=== PATIENT | female | born 1975 | race African-American/Black ===

== ENCOUNTER 2025-08-13 15:09 | Inpatient (IN) | payer MEDICAID ==
[2025-08-13] VITALS (17 sets, daily range): BP systolic 106–133; BP diastolic 79–95; PULSE 99–112; RESP 16–36; TEMP 36.8072–37; O2SAT 97–100
[~2025-08-13] VITALS: Ht 167.6 cm; Wt 99.8 kg
[~2025-08-13 15:09] MED LIST: ETOMIDATE 2MG/ML 10ML VIAL IV ONE; ROCURONIUM BROMIDE 10MG/ML VIAL 5ML IV ONE
[2025-08-13] MEDS: METHYLPREDNISOLONE SOD SUCC 125MG/2ML (ACT-O-VIAL) ONE (15:29)
[2025-08-13] MEDS ORDERED: FENTANYL 2500MCG/250ML PMX 250 ML IV SCH (15:30)
[2025-08-13] MEDS: PROPOFOL 10MG/ML 100ML 100 ML IV SCH (15:31)
[2025-08-13] MEDS: SODIUM CHLORIDE 0.9% 1,000 ML IV ONE (15:31)
[2025-08-13 15:36] LABS: BASOPHILS % 0.4 % (0.0-2.0); EOSINOPHILS % 0.9 % (0.0-5.0); HEMATOCRIT. 46.1 % (36.0-48.0); HEMOGLOBIN. 14.9 g/dL (12.0-16.0); LYMPHOCYTES % 35.1 % (20.0-50.0); MEAN PLATELET VOLUME 9.6 fl (7.4-10.4); MONOCYTES % 5.3 % (2.0-8.0); NEUTROPHILS % 58.3 % (40.0-76.0); PLATELET 246 x1000/uL (130-400); RED BLOOD CELL COUNT 5.14 mill/uL (4.2-5.4); RED CELL DISTRIBUTION WIDTH 14.3 % (11.6-14.6)
[2025-08-13] MEDS: MAGNESIUM 2 G PREMIX 50 ML IV ONE (15:43)
[2025-08-13] MEDS: ONDANSETRON HCL 4MG/2ML INJ IV ONE (15:44)
[2025-08-13] MEDS: FENTANYL 2500MCG/250ML PMX 250 ML IV PRN (15:44)
[2025-08-13 15:49] LABS: CREATININE 0.9 mg/dL (0.6-1.0)
[2025-08-13 15:50] LABS: TROPONIN I HIGH SENSITIVITY < 4 ng/L (3.0-34); UREA NITROGEN BLOOD 8 mg/dL (9-23)
[2025-08-13 15:51] LABS: ASPARTATE AMINOTRANSFERASE 17 IU/L (<34)
[2025-08-13 15:52] LABS: BILIRUBIN DIRECT < 0.1 mg/dL (<=3.0); BILIRUBIN TOTAL 0.3 mg/dL (0.1-1.0); PROTEIN TOTAL 7.3 g/dL (6.0-8.3)
[2025-08-13 16:00] LABS: HCG SCREEN NEGATIVE
[2025-08-13] MEDS ORDERED: METHYLPREDNISOLONE SOD SUCC 125MG/2ML (ACT-O-VIAL) IV SCH (16:00)
[2025-08-13] MEDS: AZITHROMYCIN 500MG/250ML 250 ML IV ONE (16:17)
[2025-08-13] MEDS ORDERED: IPRATROPIUM/ALBUTEROL 0.5-3(2.5)MG/3ML NEB HHN PRN ×2 (16:30→17:00)
[2025-08-13] MEDS: SODIUM CHLORIDE 0.9% (SEPSIS BOLUS) IV ONE (16:32)
[2025-08-13 16:45] LABS: BG BASE EXCESS -7.7 mmol/L (-2.0-3.0); BG CARBOXYHEMOGLOBIN 0.7 % (0.5-1.5); BG DEOXYHEMOGLOBIN 0.2 % (0.0-5.0); BG FRACTION INSPIRED OXYGEN 100; BG HCO3 ACT 21.8 mmol/L (21.0-28.0); BG METHEMOGLOBIN 0.3 % (0.5-1.5); BG OXYGEN SATURATION 99.8 % (94.0-98.0); BG OXYHEMOGLOBIN 98.8 % (94.0-98.0); BG PCO2 61.0 mmHg (32.0-45.0); BG PH 7.171 (7.350-7.450); BG PO2 344.5 mmHg (83.0-108.0); BG SAMPLE SITE RIGHT RADIAL; BG TIDAL VOLUME(mL) 450.0 mL; BG TOTAL HEMOGLOBIN 15.2 g/dL (12.0-16.0); BG VENT MODE VENT - AC; BG VENT RATE 16.0 set
[2025-08-13 17:00] LABS: INR 1.0
[2025-08-13] MEDS ORDERED: ACETAMINOPHEN 325MG TABLET PO PRN ×2 (17:00)
[2025-08-13] MEDS: VANCOMYCIN 1G PREMIX 200 ML IV SCH (17:00)
[2025-08-13] MEDS: CLONIDINE 0.1MG TABLET NG NR (17:00)
[2025-08-13] MEDS ORDERED: DOCUSATE SODIUM 100MG CAPSULE PO PRN (17:00)
[2025-08-13] MEDS: PIPERACILLIN/TAZO 3.375G/50ML 50 ML IV SCH (17:19)
[2025-08-13 17:26] LABS: CREATININE 0.7 mg/dL (0.6-1.0); UREA NITROGEN BLOOD 7 mg/dL (9-23)
[2025-08-13] MEDS ORDERED: DEXTROSE 50% WATER 50ML SYRINGE IV PRN (17:30)
[2025-08-13] MEDS ORDERED: FENTANYL CITRATE/PF 2,500 MCG in SODIUM CHLORIDE 0.9% 200 ML IV PRN (17:30)
[2025-08-13] MEDS ORDERED: METHYLPREDNISOLONE SOD SUCC 40MG/ML (ACT-O-VIAL) IV SCH (17:30)
[2025-08-13] MEDS: KCL 20MEQ/100ML PREMIX 100 ML IV NR (17:39)
[2025-08-13] MEDS: DILTIAZEM HCL 5MG/ML 5ML VIAL IV NR (17:45)
[2025-08-13] MEDS: METHYLPREDNISOLONE SOD SUCC 125MG/2ML (ACT-O-VIAL) IV SCH (17:51)
[2025-08-13] MEDS: BLOOD SUGAR DIAGNOSTIC STRIP TEST SCH (18:00)
[2025-08-13] MEDS: INSULIN LISPRO 100 UNITS/ML SUBCUT SCH (18:00)
[2025-08-13 18:07] LABS: TRIGLYCERIDE 651.0 mg/dL (0-150)
[2025-08-13 18:08] LABS: LDL CHOLESTEROL 143.0 mg/dL (5-100)
[2025-08-13 18:12] LABS: T4 FREE 1.22 ng/dL (0.89-1.76)
[2025-08-13] MEDS: IPRATROPIUM/ALBUTEROL 0.5-3(2.5)MG/3ML NEB HHN SCH (19:35)
[2025-08-13 20:39] LABS: INFLUENZA TYPE A Presumptive Negative (Pres. Neg.)
[2025-08-13 20:40] LABS: INFLUENZA TYPE B Presumptive Negative (Pres. Neg.)
[2025-08-13] MEDS: ENOXAPARIN 30MG/0.3ML SYR SUBCUT SCH (21:48)
[2025-08-13] MEDS: FAMOTIDINE 20MG/2ML VIAL IV SCH (21:48)
[2025-08-13] MEDS: PROPOFOL 10MG/ML 100ML 100 ML IV PRN (21:49)
[2025-08-13 22:01] LABS: BG BASE EXCESS -8.9 mmol/L (-2.0-3.0); BG CARBOXYHEMOGLOBIN 0.8 % (0.5-1.5); BG DEOXYHEMOGLOBIN 1.7 % (0.0-5.0); BG FRACTION INSPIRED OXYGEN 40; BG HCO3 ACT 17.5 mmol/L (21.0-28.0); BG METHEMOGLOBIN 0.3 % (0.5-1.5); BG OXYGEN SATURATION 98.3 % (94.0-98.0); BG OXYHEMOGLOBIN 97.2 % (94.0-98.0); BG PCO2 39.6 mmHg (32.0-45.0); BG PEEP (cmH2O) 5.0 cmH2O; BG PH 7.263 (7.350-7.450); BG PO2 116.6 mmHg (83.0-108.0); BG SAMPLE SITE RIGHT RADIAL; BG TIDAL VOLUME(mL) 500.0 mL; BG TOTAL HEMOGLOBIN 14.5 g/dL (12.0-16.0); BG VENT MODE VENT - AC; BG VENT RATE 18.0 set
[2025-08-14] VITALS (97 sets, daily range): BP systolic 99–148; BP diastolic 56–96; PULSE 91–134; RESP 5–32; TEMP 36.8–37.9; O2SAT 94–100
[2025-08-14] MEDS: PIPERACILLIN/TAZO 3.375G/50ML 50 ML IV SCH (00:26)
[2025-08-14] MEDS: VANCOMYCIN 1G PREMIX 200 ML IV SCH ×2 (00:29→09:20)
[2025-08-14 05:46] LABS: HEMATOCRIT. 44.6 % (36.0-48.0); HEMOGLOBIN. 14.0 g/dL (12.0-16.0); MEAN PLATELET VOLUME 9.7 fl (7.4-10.4); PLATELET 247 x1000/uL (130-400); RED BLOOD CELL COUNT 4.95 mill/uL (4.2-5.4); RED CELL DISTRIBUTION WIDTH 14.1 % (11.6-14.6)
[2025-08-14 06:00] LABS: CREATININE 1.1 mg/dL (0.6-1.0); UREA NITROGEN BLOOD 11 mg/dL (9-23)
[2025-08-14 06:02] LABS: PHOSPHORUS 2.6 mg/dL (2.5-4.9)
[2025-08-14 09:14] LABS: TRIGLYCERIDE 379.0 mg/dL (0-150)
[2025-08-14 09:28] LABS: CLARITY URINE CLEAR (CLEAR); COLOR URINE YELLOW (YELLOW); GLUCOSE URINE 1+ (NEGATIVE); KETONES URINE NEGATIVE (NEGATIVE); LEUKOCYTE ESTERASE URINE NEGATIVE (NEGATIVE); NITRITE URINE NEGATIVE (NEGATIVE); OCCULT BLOOD URINE NEGATIVE (NEGATIVE); PH URINE 5.5 (4.5-8.0); PROTEIN URINE 2+ (NEGATIVE); SPECIFIC GRAVITY URINE 1.040 (1.005-1.030); UROBILINOGEN URINE 0.2 E.U./dL (0.2-1.0)
[2025-08-14 09:30] LABS: BG BASE EXCESS -12.2 mmol/L (-2.0-3.0); BG CARBOXYHEMOGLOBIN 0.7 % (0.5-1.5); BG DEOXYHEMOGLOBIN 1.7 % (0.0-5.0); BG FRACTION INSPIRED OXYGEN 40; BG HCO3 ACT 15.0 mmol/L (21.0-28.0); BG METHEMOGLOBIN 0.3 % (0.5-1.5); BG OXYGEN SATURATION 98.3 % (94.0-98.0); BG OXYHEMOGLOBIN 97.3 % (94.0-98.0); BG PCO2 38.6 mmHg (32.0-45.0); BG PEEP (cmH2O) 5.0 cmH2O; BG PH 7.207 (7.350-7.450); BG PO2 114.8 mmHg (83.0-108.0); BG SAMPLE SITE RIGHT RADIAL; BG TIDAL VOLUME(mL) 500.0 mL; BG TOTAL HEMOGLOBIN 15.4 g/dL (12.0-16.0); BG VENT MODE VENT - AC; BG VENT RATE 18.0 set
[2025-08-14 09:51] LABS: *AMPHETAMINES SCREEN URINE NEGATIVE (NEGATIVE); *BARBITURATES SCREEN URINE NEGATIVE (NEGATIVE); *BENZODIAZEPINES SCREEN URINE NEGATIVE (NEGATIVE); *COCAINE SCREEN URINE NEGATIVE (NEGATIVE); METHADONE URINE SCREEN NEGATIVE (NEGATIVE)
[2025-08-14 09:52] LABS: CANNABINOID URINE SCREEN NEGATIVE (NEGATIVE); ECSTASY MDMA SCREEN URINE NEGATIVE (NEGATIVE); OPIATES URINE SCREEN NEGATIVE (NEGATIVE); PHENCYCLIDINE URINE SCREEN NEGATIVE (NEGATIVE)
[2025-08-14 09:56] LABS: COARSE GRANULAR CASTS URINE 0-5 /lpf; FINE GRANULAR CASTS URINE 0-5 /lpf; HYALINE CASTS URINE 0-5 /lpf; WHITE BLOOD CELL CASTS URINE 0-5 /lpf
[2025-08-14 09:57] LABS: RBC URINE NONE SEEN /hpf (0-2); SQUAMOUS EPITHELIAL CELL URINE RARE /lpf (RARE/1+)
[2025-08-14 09:58] LABS: BACTERIA URINE TRACE; MUCUS URINE 1+ /lpf (< = 2+)
[2025-08-14] MEDS: DEXTROSE 50% WATER 50ML SYRINGE IV SCH (10:21)
[2025-08-14] MEDS: INSULIN REGULAR (HUMULIN R) 1000UNITS/10ML VIAL IV SCH (10:22)
[2025-08-14] MEDS: CALCIUM CHLORIDE 1GM/10ML SYR IV SCH (10:22)
[2025-08-14] MEDS: SODIUM BICARBONATE 8.4% 50MEQ/50ML SYR IV SCH (10:22)
[2025-08-14] MEDS: SODIUM CHLORIDE 0.9% 1,000 ML IV SCH (10:55)
[2025-08-14] MEDS: SODIUM CHLORIDE 0.9% 500 ML IV ONE (10:55)
[2025-08-14] MEDS: METHYLPREDNISOLONE SOD SUCC 125MG/2ML (ACT-O-VIAL) IV NR (11:58)
[2025-08-14] MEDS: ALBUTEROL (0.083%) 2.5MG/3ML NEB HHN SCH ×2 (12:02→14:00)
[2025-08-14] MEDS: ALBUTEROL (0.083%) 2.5MG/3ML NEB HHN ONE (12:03)
[2025-08-14] MEDS: IPRATROPIUM BROMIDE (0.02%) 0.5MG/2.5ML NEB HHN SCH (12:04)
[2025-08-14 12:10] LABS: LYMPHOCYTES % MANUAL 2.0 % (20.0-60.0); MONOCYTES % MANUAL 3.0 % (2.0-8.0); NEUTROPHILS % MANUAL 95.0 % (45.0-75.0); PLATELET ESTIMATE NORMAL
[2025-08-14] MEDS: DIPHENHYDRAMINE 50MG/ML VIAL IV NR (12:25)
[2025-08-14] MEDS: MAGNESIUM 2 G PREMIX 50 ML IV NR (12:25)
[2025-08-14] MEDS: MIDAZOLAM 100MG/100ML PMX 100 ML IV PRN (12:32)
[2025-08-14] MEDS: FENTANYL 2500MCG/250ML PMX 250 ML IV PRN (12:33)
[2025-08-14 15:27] LABS: CREATININE 1.2 mg/dL (0.6-1.0); UREA NITROGEN BLOOD 17.0 mg/dL (9-23)
[2025-08-14] MEDS: MONTELUKAST SODIUM 10MG TABLET PO SCH (17:36)
[2025-08-14] MEDS ORDERED: VECURONIUM BROMIDE 50 MG in DEXTROSE 5% WATER 50 ML IV PRN (18:15)
[2025-08-14] MEDS: PROPOFOL 10MG/ML 100ML 100 ML IV PRN (19:11)
[2025-08-14 21:09] LABS: BG BASE EXCESS -11.3 mmol/L (-2.0-3.0); BG CARBOXYHEMOGLOBIN 0.1 % (0.5-1.5); BG DEOXYHEMOGLOBIN 17.7 % (0.0-5.0); BG FRACTION INSPIRED OXYGEN 40; BG HCO3 ACT 22.1 mmol/L (21.0-28.0); BG METHEMOGLOBIN 0.2 % (0.5-1.5); BG OXYGEN SATURATION 82.2 % (94.0-98.0); BG OXYHEMOGLOBIN 82.0 % (94.0-98.0); BG PCO2 93.2 mmHg (32.0-45.0); BG PEEP (cmH2O) 8.0 cmH2O; BG PH 6.993 (7.350-7.450); BG PO2 58.6 mmHg (83.0-108.0); BG SAMPLE SITE RIGHT RADIAL; BG TOTAL HEMOGLOBIN 14.2 g/dL (12.0-16.0); BG VENT MODE VENT - P/C; BG VENT RATE 14.0 set
[2025-08-14] MEDS: ONDANSETRON HCL 4MG/2ML INJ IV PRN (21:09)
[2025-08-14] MEDS: GUAIFENESIN 200MG/10ML SUGAR FREE UDC PO PRN (21:09)
[2025-08-14] MEDS: DIPHENHYDRAMINE 50MG/ML VIAL IV PRN (21:10)
[2025-08-14] MEDS: SODIUM BICARBONATE 8.4% 50MEQ/50ML SYR IV NR (21:37)
[2025-08-14] MEDS: SODIUM BICARBONATE 100 MEQ in SODIUM CHLORIDE 0.45% 900 ML IV SCH (23:19)
[2025-08-15] VITALS (107 sets, daily range): BP systolic 99–136; BP diastolic 51–87; PULSE 48–117; RESP 13–21; TEMP 36.9–37.5; O2SAT 77–100
[2025-08-15 00:07] LABS: BG BASE EXCESS -5.1 mmol/L (-2.0-3.0); BG CARBOXYHEMOGLOBIN 0.2 % (0.5-1.5); BG DEOXYHEMOGLOBIN 0.9 % (0.0-5.0); BG FRACTION INSPIRED OXYGEN 70; BG HCO3 ACT 24.8 mmol/L (21.0-28.0); BG METHEMOGLOBIN 0.2 % (0.5-1.5); BG OXYGEN SATURATION 99.1 % (94.0-98.0); BG OXYHEMOGLOBIN 98.7 % (94.0-98.0); BG PCO2 70.9 mmHg (32.0-45.0); BG PEEP (cmH2O) 8.0 cmH2O; BG PH 7.162 (7.350-7.450); BG PO2 143.1 mmHg (83.0-108.0); BG SAMPLE SITE RIGHT RADIAL; BG TOTAL HEMOGLOBIN 12.9 g/dL (12.0-16.0); BG VENT MODE VENT - P/C; BG VENT RATE 14.0 set
[2025-08-15] MEDS: SODIUM BICARBONATE 8.4% 50MEQ/50ML SYR IV NR (00:49)
[2025-08-15] MEDS: SODIUM ZIRCONIUM CYCLOSILICATE 10GM/PACKET PO NR (00:49)
[2025-08-15] MEDS: DEXTROSE 50% WATER 50ML SYRINGE IV NR (00:49)
[2025-08-15] MEDS: INSULIN REGULAR (HUMULIN R) 1000UNITS/10ML VIAL IV NR (00:50)
[2025-08-15] MEDS: CALCIUM GLUCONATE 1GM PREMIX 50 ML IV NR (03:37)
[2025-08-15 06:53] LABS: CREATININE 1.0 mg/dL (0.6-1.0); TRIGLYCERIDE 314 mg/dL (0-150)
[2025-08-15 06:54] LABS: HEMATOCRIT. 35.0 % (36.0-48.0); HEMOGLOBIN. 11.2 g/dL (12.0-16.0); MEAN PLATELET VOLUME 10.5 fl (7.4-10.4); PLATELET 192 x1000/uL (130-400); RED BLOOD CELL COUNT 3.91 mill/uL (4.2-5.4); RED CELL DISTRIBUTION WIDTH 14.1 % (11.6-14.6); UREA NITROGEN BLOOD 18 mg/dL (9-23)
[2025-08-15 06:55] LABS: ASPARTATE AMINOTRANSFERASE 9 IU/L (<34); BILIRUBIN DIRECT < 0.1 mg/dL (<=3.0)
[2025-08-15 06:56] LABS: BILIRUBIN TOTAL 0.3 mg/dL (0.1-1.0); PHOSPHORUS 4.1 mg/dL (2.5-4.9); PROTEIN TOTAL 5.7 g/dL (6.0-8.3)
[2025-08-15] MEDS: IOHEXOL-350 100 ML BOTTLE ONE (08:43)
[2025-08-15 09:24] LABS: BG BASE EXCESS 1.4 mmol/L (-2.0-3.0); BG CARBOXYHEMOGLOBIN 0.7 % (0.5-1.5); BG DEOXYHEMOGLOBIN 2.0 % (0.0-5.0); BG FRACTION INSPIRED OXYGEN 40; BG HCO3 ACT 28.9 mmol/L (21.0-28.0); BG METHEMOGLOBIN 0.2 % (0.5-1.5); BG OXYGEN SATURATION 98.0 % (94.0-98.0); BG OXYHEMOGLOBIN 97.1 % (94.0-98.0); BG PCO2 59.8 mmHg (32.0-45.0); BG PEEP (cmH2O) 8.0 cmH2O; BG PH 7.302 (7.350-7.450); BG PO2 102.4 mmHg (83.0-108.0); BG SAMPLE SITE LEFT RADIAL; BG TIDAL VOLUME(mL) 450.0 mL; BG TOTAL HEMOGLOBIN 12.0 g/dL (12.0-16.0); BG VENT MODE VENT - AC; BG VENT RATE 14.0 set
[2025-08-15] MEDS: VANCOMYCIN 1.5GM/250ML 250 ML IV SCH (10:04)
[2025-08-15] MEDS: LIDOCAINE HCL 1% 10 MG/ML 10ML VIAL ONE (12:18)
[2025-08-15] MEDS: SODIUM CHLORIDE 0.9% 1,000 ML IV SCH (15:33)
[2025-08-15 17:46] LABS: POTASSIUM URINE RANDOM 41.6 mEq/L; SODIUM URINE RANDOM 53.0 mEq/L
[2025-08-15 17:54] LABS: CREATININE URINE RANDOM 53.2 mg/dL
[2025-08-15 18:43] LABS: CREATININE 0.7 mg/dL (0.6-1.0)
[2025-08-15 18:44] LABS: UREA NITROGEN BLOOD 13 mg/dL (9-23)
[2025-08-15 18:46] LABS: ASPARTATE AMINOTRANSFERASE 8 IU/L (<34); BILIRUBIN TOTAL 0.4 mg/dL (0.1-1.0); PROTEIN TOTAL 5.5 g/dL (6.0-8.3)
[2025-08-15] MEDS: PROPOFOL 10MG/ML 100ML 100 ML IV PRN (19:09)
[2025-08-16] VITALS (97 sets, daily range): BP systolic 124–181; BP diastolic 78–126; PULSE 60–149; RESP 13–28; TEMP 36.9–37.2; O2SAT 92–100
[2025-08-16 07:06] LABS: LYMPHOCYTES % MANUAL 4.0 % (20.0-60.0); MONOCYTES % MANUAL 4.0 % (2.0-8.0); NEUTROPHILS % MANUAL 92.0 % (45.0-75.0); PLATELET ESTIMATE NORMAL
[2025-08-16 07:44] LABS: HEMATOCRIT. 35.4 % (36.0-48.0); HEMOGLOBIN. 11.5 g/dL (12.0-16.0); MEAN PLATELET VOLUME 10.6 fl (7.4-10.4); PLATELET 191 x1000/uL (130-400); RED BLOOD CELL COUNT 3.98 mill/uL (4.2-5.4); RED CELL DISTRIBUTION WIDTH 14.2 % (11.6-14.6)
[2025-08-16 08:19] LABS: TRIGLYCERIDE 380 mg/dL (0-150)
[2025-08-16 08:21] LABS: CREATININE 0.8 mg/dL (0.6-1.0)
[2025-08-16 08:22] LABS: UREA NITROGEN BLOOD 24 mg/dL (9-23)
[2025-08-16 08:23] LABS: ASPARTATE AMINOTRANSFERASE 12 IU/L (<34)
[2025-08-16 08:24] LABS: BILIRUBIN DIRECT < 0.1 mg/dL (<=3.0); BILIRUBIN TOTAL 0.2 mg/dL (0.1-1.0); PHOSPHORUS 3.7 mg/dL (2.5-4.9); PROTEIN TOTAL 5.5 g/dL (6.0-8.3)
[2025-08-16] MEDS ORDERED: SODIUM CHLORIDE 0.45% 500 ML IV NR (10:00)
[2025-08-16 10:30] LABS: BG BASE EXCESS 2.8 mmol/L (-2.0-3.0); BG CARBOXYHEMOGLOBIN 0.5 % (0.5-1.5); BG DEOXYHEMOGLOBIN 1.1 % (0.0-5.0); BG FRACTION INSPIRED OXYGEN 35; BG HCO3 ACT 28.6 mmol/L (21.0-28.0); BG METHEMOGLOBIN 0.3 % (0.5-1.5); BG OXYGEN SATURATION 98.9 % (94.0-98.0); BG OXYHEMOGLOBIN 98.1 % (94.0-98.0); BG PCO2 48.7 mmHg (32.0-45.0); BG PEEP (cmH2O) 8.0 cmH2O; BG PH 7.386 (7.350-7.450); BG PO2 124.1 mmHg (83.0-108.0); BG SAMPLE SITE RIGHT RADIAL; BG TIDAL VOLUME(mL) 450.0 mL; BG TOTAL HEMOGLOBIN 12.3 g/dL (12.0-16.0); BG VENT MODE VENT - AC; BG VENT RATE 14.0 set
[2025-08-16 17:38] LABS: BAND% 1.0 % (1.0-6.0); LYMPHOCYTES % MANUAL 3.0 % (20.0-60.0); MONOCYTES % MANUAL 2.0 % (2.0-8.0); NEUTROPHILS % MANUAL 94.0 % (45.0-75.0); PLATELET ESTIMATE NORMAL
[2025-08-16] MEDS: PROPOFOL 10MG/ML 100ML 100 ML IV PRN (20:40)
[2025-08-17] VITALS (89 sets, daily range): BP systolic 86–200; BP diastolic 40–124; PULSE 78–159; RESP 8–36; TEMP 36.7–38.4; O2SAT 91–100
[2025-08-17] MEDS: CLONIDINE 0.1MG TABLET PO PRN (04:06)
[2025-08-17 05:31] LABS: HEMATOCRIT. 33.2 % (36.0-48.0); HEMOGLOBIN. 10.8 g/dL (12.0-16.0); MEAN PLATELET VOLUME 10.2 fl (7.4-10.4); PLATELET 178 x1000/uL (130-400); RED BLOOD CELL COUNT 3.77 mill/uL (4.2-5.4); RED CELL DISTRIBUTION WIDTH 14.2 % (11.6-14.6)
[2025-08-17 05:47] LABS: CREATININE 0.9 mg/dL (0.6-1.0); TRIGLYCERIDE 627 mg/dL (0-150)
[2025-08-17 05:48] LABS: UREA NITROGEN BLOOD 29 mg/dL (9-23)
[2025-08-17] MEDS: FUROSEMIDE 40MG/4ML VIAL IVP SCH (09:15)
[2025-08-17 10:37] LABS: BG BASE EXCESS 2.5 mmol/L (-2.0-3.0); BG CARBOXYHEMOGLOBIN 0.5 % (0.5-1.5); BG DEOXYHEMOGLOBIN 4.3 % (0.0-5.0); BG FRACTION INSPIRED OXYGEN 35; BG HCO3 ACT 28.5 mmol/L (21.0-28.0); BG METHEMOGLOBIN 0.3 % (0.5-1.5); BG OXYGEN SATURATION 95.7 % (94.0-98.0); BG OXYHEMOGLOBIN 94.9 % (94.0-98.0); BG PCO2 50.0 mmHg (32.0-45.0); BG PEEP (cmH2O) 8.0 cmH2O; BG PH 7.374 (7.350-7.450); BG PO2 79.0 mmHg (83.0-108.0); BG SAMPLE SITE RIGHT RADIAL; BG TIDAL VOLUME(mL) 450.0 mL; BG TOTAL HEMOGLOBIN 12.4 g/dL (12.0-16.0); BG VENT MODE VENT - AC; BG VENT RATE 14.0 set
[2025-08-17 11:48] LABS: BAND% 2.0 % (1.0-6.0); LYMPHOCYTES % MANUAL 5.0 % (20.0-60.0); MONOCYTES % MANUAL 4.0 % (2.0-8.0); NEUTROPHILS % MANUAL 89.0 % (45.0-75.0)
[2025-08-17 11:49] LABS: PLATELET ESTIMATE NORMAL
[2025-08-17 14:58] LABS: BG BASE EXCESS 10.4 mmol/L (-2.0-3.0); BG CARBOXYHEMOGLOBIN 0.4 % (0.5-1.5); BG DEOXYHEMOGLOBIN 2.9 % (0.0-5.0); BG FRACTION INSPIRED OXYGEN 35; BG HCO3 ACT 35.0 mmol/L (21.0-28.0); BG METHEMOGLOBIN 0.3 % (0.5-1.5); BG OXYGEN SATURATION 97.1 % (94.0-98.0); BG OXYHEMOGLOBIN 96.4 % (94.0-98.0); BG PCO2 46.1 mmHg (32.0-45.0); BG PEEP (cmH2O) 5.0 cmH2O; BG PH 7.498 (7.350-7.450); BG PO2 83.4 mmHg (83.0-108.0); BG SAMPLE SITE RIGHT RADIAL; BG TOTAL HEMOGLOBIN 13.1 g/dL (12.0-16.0); BG VENT MODE VENT - CPAP
[2025-08-17] MEDS: ACETAMINOPHEN 650MG/20.3ML UDC PO PRN (15:47)
[2025-08-17] MEDS: METOPROLOL TARTRATE 5MG/5ML VIAL IV SCH ×2 (17:15→18:55)
[2025-08-17] MEDS: HYDRALAZINE 20MG/ML VIAL IV PRN (22:50)
[2025-08-18] VITALS (10 sets, daily range): BP systolic 136–162; BP diastolic 80–97; PULSE 73–91; RESP 17–22; TEMP 36.4–36.9; O2SAT 95–98
[2025-08-18] MEDS: AMLODIPINE 5MG TABLET PO SCH ×2 (00:57→09:46)
[2025-08-18 07:07] LABS: HEMATOCRIT. 35.3 % (36.0-48.0); HEMOGLOBIN. 11.4 g/dL (12.0-16.0); MEAN PLATELET VOLUME 10.3 fl (7.4-10.4); PLATELET 184 x1000/uL (130-400); RED BLOOD CELL COUNT 4.01 mill/uL (4.2-5.4); RED CELL DISTRIBUTION WIDTH 14.0 % (11.6-14.6)
[2025-08-18 07:40] LABS: CREATININE 0.7 mg/dL (0.6-1.0); UREA NITROGEN BLOOD 26 mg/dL (9-23)
[2025-08-18] MEDS: LORAZEPAM 0.5MG TABLET PO PRN (13:09)
[2025-08-18 19:47] LABS: LYMPHOCYTES % MANUAL 11.0 % (20.0-60.0); MONOCYTES % MANUAL 9.0 % (2.0-8.0); NEUTROPHILS % MANUAL 80.0 % (45.0-75.0); PLATELET ESTIMATE NORMAL
[2025-08-18] MEDS: PREDNISONE 20MG TABLET PO SCH (21:33)
[2025-08-18] MEDS: IPRATROPIUM/ALBUTEROL 0.5-3(2.5)MG/3ML NEB HHN SCH (22:18)
[2025-08-19] VITALS (9 sets, daily range): BP systolic 116–154; BP diastolic 76–94; PULSE 65–90; RESP 17–20; TEMP 36.4–36.7; O2SAT 96–100
[2025-08-19 06:44] LABS: BASOPHILS % 0.1 % (0.0-2.0); EOSINOPHILS % 0.0 % (0.0-5.0); HEMATOCRIT. 37.3 % (36.0-48.0); HEMOGLOBIN. 12.3 g/dL (12.0-16.0); LYMPHOCYTES % 7.5 % (20.0-50.0); MEAN PLATELET VOLUME 9.9 fl (7.4-10.4); MONOCYTES % 9.0 % (2.0-8.0); NEUTROPHILS % 83.4 % (40.0-76.0); PLATELET 196 x1000/uL (130-400); RED BLOOD CELL COUNT 4.30 mill/uL (4.2-5.4); RED CELL DISTRIBUTION WIDTH 13.4 % (11.6-14.6)
[2025-08-19 06:46] LABS: CREATININE 0.7 mg/dL (0.6-1.0)
[2025-08-19 06:47] LABS: UREA NITROGEN BLOOD 17 mg/dL (9-23)
[2025-08-19 13:09] LABS: ACTH PLASMA < 2 pg/mL (7.2-63.3)
[2025-08-19] MEDS: FAMOTIDINE 20MG TABLET PO SCH (21:38)
[2025-08-20] VITALS (9 sets, daily range): BP systolic 104–120; BP diastolic 61–78; PULSE 69–83; RESP 16–20; TEMP 36.4–36.8; O2SAT 95–100
[2025-08-20 08:16] LABS: BASOPHILS % 0.1 % (0.0-2.0); EOSINOPHILS % 0.1 % (0.0-5.0); HEMATOCRIT. 39.1 % (36.0-48.0); HEMOGLOBIN. 12.9 g/dL (12.0-16.0); LYMPHOCYTES % 7.3 % (20.0-50.0); MEAN PLATELET VOLUME 10.0 fl (7.4-10.4); MONOCYTES % 6.9 % (2.0-8.0); NEUTROPHILS % 85.6 % (40.0-76.0); PLATELET 201 x1000/uL (130-400); RED BLOOD CELL COUNT 4.51 mill/uL (4.2-5.4); RED CELL DISTRIBUTION WIDTH 13.9 % (11.6-14.6)
[2025-08-20 08:32] LABS: CREATININE 0.6 mg/dL (0.6-1.0); UREA NITROGEN BLOOD 17 mg/dL (9-23)
[2025-08-21] VITALS (10 sets, daily range): BP systolic 105–117; BP diastolic 66–72; PULSE 73–84; RESP 16–20; TEMP 36.4–37.1; O2SAT 97–100
[2025-08-21] MEDS: INSULIN LISPRO 100 UNITS/ML SUBCUT SCH (07:30)
[2025-08-21] MEDS: BLOOD SUGAR DIAGNOSTIC STRIP TEST SCH (07:30)
[2025-08-21] MEDS: PREDNISONE 20MG TABLET PO SCH (21:49)
[2025-08-22] VITALS: BP 144/73; PULSE 77; RESP 18; TEMP 36.7; O2SAT 99
[2025-08-22 04:00] VITALS: BP 149/78; PULSE 77; RESP 18; TEMP 36.3; O2SAT 96
[2025-08-22 09:34] VITALS: PULSE 70; RESP 16; O2SAT 98
[2025-08-22 14:42] VITALS: PULSE 86; RESP 16; O2SAT 97
[2025-08-22 20:00] VITALS: BP 116/71; PULSE 86; RESP 18; TEMP 36.2; O2SAT 99
[2025-08-23] VITALS (8 sets, daily range): BP systolic 110–118; BP diastolic 64–83; PULSE 70–105; RESP 17–20; TEMP 32.3–37.4; O2SAT 97–100
[2025-08-24] VITALS: BP 134/83; PULSE 88; RESP 19; TEMP 36.3; O2SAT 100
[2025-08-24 04:00] VITALS: BP 117/74; PULSE 87; RESP 18; TEMP 32.3; O2SAT 100
[2025-08-24 07:24] LABS: HEMATOCRIT. 35.1 % (36.0-48.0); HEMOGLOBIN. 11.4 g/dL (12.0-16.0); MEAN PLATELET VOLUME 9.8 fl (7.4-10.4); PLATELET 233 x1000/uL (130-400); RED BLOOD CELL COUNT 3.99 mill/uL (4.2-5.4); RED CELL DISTRIBUTION WIDTH 13.9 % (11.6-14.6)
[2025-08-24 07:34] LABS: CREATININE 0.6 mg/dL (0.6-1.0); UREA NITROGEN BLOOD 9 mg/dL (9-23)
[2025-08-24 08:00] VITALS: BP 126/78; PULSE 78; RESP 16; TEMP 36.3; O2SAT 100
[2025-08-24 12:00] VITALS: BP 119/80; PULSE 77; RESP 16; TEMP 36.4; O2SAT 97
[2025-08-24 16:00] VITALS: BP 143/85; PULSE 101; RESP 18; TEMP 36.6; O2SAT 100
[2025-08-24] MEDS ORDERED: HYDRALAZINE 10 MG in SODIUM CHLORIDE 0.9% 49.5 ML IV PRN (16:00)
[2025-08-24 16:50] LABS: LYMPHOCYTES % MANUAL 16.0 % (20.0-60.0); MONOCYTES % MANUAL 11.0 % (2.0-8.0); NEUTROPHILS % MANUAL 73.0 % (45.0-75.0); PLATELET ESTIMATE NORMAL
[2025-08-24 21:00] VITALS: BP 110/77; PULSE 81; RESP 18; TEMP 36.4; O2SAT 100
[2025-08-25 05:00] VITALS: BP 107/73; PULSE 83; RESP 18; TEMP 36.3; O2SAT 99
[2025-08-25 08:00] VITALS: BP 130/84; PULSE 97; RESP 16; TEMP 36.3; O2SAT 96
[2025-08-25 20:00] VITALS: BP 131/97; PULSE 96; RESP 19; TEMP 36.5; O2SAT 99
[2025-08-26] VITALS: BP 111/73; PULSE 80; RESP 19; TEMP 36.2; O2SAT 100
[2025-08-26 04:00] VITALS: BP 114/72; PULSE 75; RESP 19; TEMP 36.2; O2SAT 100
[2025-08-26 08:00] VITALS: BP 127/78; PULSE 77; RESP 16; TEMP 36.4; O2SAT 100
[2025-08-26 15:36] VITALS: BP 129/76; PULSE 97; RESP 18; TEMP 97.6
[2025-08-26 16:00] VITALS: BP 129/76; PULSE 97; RESP 18; TEMP 36.4; O2SAT 99
[2025-08-26] MEDS ORDERED: ATORVASTATIN CALCIUM 40MG TABLET PO SCH (21:00)
== END 2025-08-26 17:36 | disposition home health service (06) | DRG 720 ==
LOC: ER 15:09 → EDBD 15:09 → EDBEDREQSVC 15:54 → MICUSO 16:13 → EDBEDREQ 16:16 → EDBEDREQTM 16:16 → 5WST 08-18 → 7EST 08-22 01:30
PROVIDERS: ADMIT Hospitalist; ATTEND Hospitalist
PROC: 0BH17EZ Insertion of Endotracheal Airway into Trachea, Via Natural or Artificial Opening (ICD-10-PCS; 2025-08-13)
PROC: 5A1945Z Respiratory Ventilation, 24-96 Consecutive Hours (ICD-10-PCS; 2025-08-13)
PROC: 02HV33Z Insertion of Infusion Device into Superior Vena Cava, Percutaneous Approach (ICD-10-PCS; principal; 2025-08-15)
PROC: B548ZZA Ultrasonography of Superior Vena Cava, Guidance (ICD-10-PCS; 2025-08-15)
DX: A41.9 Sepsis, unspecified organism (principal); J96.02 Acute respiratory failure with hypercapnia; G93.41 Metabolic encephalopathy; E87.29 Other acidosis; J69.0 Pneumonitis due to inhalation of food and vomit; J18.9 Pneumonia, unspecified organism; N17.9 Acute kidney failure, unspecified; F05 Delirium due to known physiological condition; I16.1 Hypertensive emergency; J45.901 Unspecified asthma with (acute) exacerbation; N18.9 Chronic kidney disease, unspecified; E83.51 Hypocalcemia; E87.6 Hypokalemia; E87.5 Hyperkalemia; I12.9 Hypertensive chronic kidney disease with stage 1 through stage 4 chronic kidney disease, or unspecified chronic kidney disease; E78.1 Pure hyperglyceridemia; R73.03 Prediabetes; G47.33 Obstructive sleep apnea (adult) (pediatric)
CPT/HCPCS: 31500; 31720; 36415; 36573; 36600; 71045; 71275; 80048; 80053; 80061; 80076; 80202; 80305; 80320; 81003; 82024; 82088; 82270; 82375; 82533; 82550; 82570; 82803; 82805; 82962; 83036; 83605; 83735; 83880; 84100; 84132; 84133; 84145; 84244; 84300; 84439; 84443; 84478; 84484; 84703; 85025; 85379; 87070; 87426; 87804; 93005; 93970; 94002; 94003; 94070; 94640; 94660; 94664; 94760; 96365; 96375; 97110; 97116; 97162; 97166; 97530; 97535; 98960; 99285; A4606; A4615; C1725; C1769; J0360; J0456; J0612; J1200; J1308; J1650; J1815; J1938; J2003; J2250; J2405; J2543; J2704; J2919; J3010; J3373; J3475; J3480; J3490; J7030; J7060; J7512; Q9967; G0480